=== PATIENT | male | born 1940 | race Caucasian/White ===

== ENCOUNTER 2019-02-25 08:37 | Inpatient (IN) | payer MEDICARE ==
[2019-02-25] VITALS (8 sets, daily range): BP systolic 78–104; BP diastolic 42–58
[~2019-02-25] VITALS: Ht 177.8 cm; Wt 71.2 kg
[~2019-02-25 08:37] MED LIST: AMLO5TAB16 PO; ATOR20TA66 PO; BENA10TA75 PO; CELE-193 PO; LEVO112T5 PO; METH2.5T55 PO; [UNRECOGNIZED DRUG - CODE] PO
[2019-02-25] MEDS ORDERED: ondansetron/PF 4mg/2ml inj IV ONE (08:55)
[2019-02-25] MEDS ORDERED: normal saline 1000ML IV soln IVB ONE ×2 (08:55→11:15)
[2019-02-25] MEDS ORDERED: normal saline 1000ML IV soln IV ONE (09:05)
[2019-02-25 10:39] LABS: BASOPHILS % (AUTO) 0.3 % (0-1); EOSINOPHILS % (AUTO) 0.2 % (0-6); HEMATOCRIT 40.2 % (42.0-52.0); HEMOGLOBIN 13.5 g/dl (14.0-17.9); LYMPHOCYTES # (AUTO) 0.5 X10'3 (1.1-4.8); LYMPHOCYTES % (AUTO) 4.3 % (21-51); MEAN CORPUSCULAR HEMOGLOBIN 30.2 PG (27.0-31.0); MEAN CORPUSCULAR HGB CONC 33.5 g/dL (33.0-36.5); MEAN CORPUSCULAR VOLUME 90.1 FL (78-98); MEAN PLATELET VOLUME 9.7 FL (7.4-10.4); MONOCYTES # (AUTO) 0.1 X10'3 (0-0.9); MONOCYTES % (AUTO) 1.4 % (2-12); NEUTROPHILS # (AUTO) 10.1 X10'3 (1.8-7.7); NEUTROPHILS % (AUTO) 93.8 % (42-75); PLATELET COUNT 220 X10'3 (140-440); RED BLOOD COUNT 4.46 X10'6 (4.70-6.10); WHITE BLOOD COUNT 10.8 X10'3 (4.5-11.0)
[2019-02-25 11:04] LABS: C DIFF SPECIMEN=DIARRHEA? ACCEPTABLE; C DIFFICILE TOXINS A&B NEGATIVE (Neg)
[2019-02-25 11:04] LABS: ALANINE AMINOTRANSFERASE 41 U/L (12-78); ALBUMIN 4.1 G/DL (3.4-5.0); ALKALINE PHOSPHATASE 84 IU/L (46-116); ANION GAP 18 (8-16); ASPARTATE AMINO TRANSFERASE 15 U/L (10-37); BILIRUBIN,TOTAL 0.3 MG/DL (0.1-1.0); BLOOD UREA NITROGEN 82 MG/DL (7-18); BUN/CREATININE RATIO 11.8 (5.4-32.0); CALCIUM 8.5 MG/DL (8.5-10.1); CHLORIDE 88 MMOL/L (99-107); CREATININE 6.97 MG/DL (0.60-1.10); GLUCOSE 131 MG/DL (70-104); LIPASE 575 U/L (73-393); TOTAL PROTEIN 8.1 G/DL (6.4-8.2); eGFR 8 ML/MIN
[2019-02-25 11:05] LABS: C DIFF ANTIGEN NEGATIVE (NEGATIVE)
[2019-02-25 11:08] LABS: POTASSIUM 7.6 MMOL/L (3.5-5.1); SODIUM 117 MMOL/L (135-145); TOTAL CARBON DIOXIDE 10.7 MMOL/L (24-32)
[2019-02-25] MEDS ORDERED: sodium polystyrene sulfonate 15gm/60ml oral suspension PO ONE (11:15)
[2019-02-25] MEDS ORDERED: albuterol 2.5 MG/3 ML nebule CONTNEB PRN (11:15)
[2019-02-25] MEDS ORDERED: sodium bicarbonate (8.4%) inj. 150 MEQ in dextrose 5%-water 1,000 ML IV SCH (11:55)
[2019-02-25] MEDS ORDERED: sodium bicarbonate (8.4%) 1 mEq/ml syringe IV ONE (11:55)
[2019-02-25] MEDS ORDERED: folic acid 1mg/0.2ml inj IV ONE (12:05)
[2019-02-25] MEDS ORDERED: SODIUM BICARBONATE IV ONE (12:07)
[2019-02-25] MEDS ORDERED: DEXTROSE 5% IV ONE (12:07)
[2019-02-25] MEDS ORDERED: WATER IV ONE (12:07)
[2019-02-25] MEDS ORDERED: sodium bicarbonate (8.4%) inj. 100 MEQ in dextrose 5%-water 1,000 ML IV ONE (12:07)
[2019-02-25] MEDS ORDERED: potassium CL 10mEq/100ml bag 100 ML IV PRN ×2 (12:20)
[2019-02-25] MEDS ORDERED: magnesium 4gm in 100ml NS 100 ML IV PRN (12:20)
[2019-02-25] MEDS ORDERED: potassium Cl 20 mEq SR tablet PO PRN ×2 (12:20)
[2019-02-25] MEDS ORDERED: mag hydrox/Alum hydrox/simeth 30ml oral suspension PO PRN (12:20)
[2019-02-25] MEDS ORDERED: ondansetron/PF 4mg/2ml inj IV PRN (12:20)
[2019-02-25] MEDS ORDERED: acetaminophen 325mg tablet PO PRN ×2 (12:20)
[2019-02-25] MEDS ORDERED: magnesium hydroxide 30ml (MOM) UD suspension PO PRN (12:20)
[2019-02-25] MEDS ORDERED: magnesium 2GM in 50ml NS 50 ML IV PRN (12:20)
[2019-02-25] MEDS ORDERED: AMOX-580 PO (12:40)
[2019-02-25] MEDS ORDERED: ONDA4TAB11 PO (12:40)
[2019-02-25 12:57] LABS: MAGNESIUM 1.8 MG/DL (1.5-2.4)
[2019-02-25 12:59] LABS: PHOSPHORUS 9.2 MG/DL (2.3-4.5)
[2019-02-25] MEDS ORDERED: normal saline 1000ml 1,000 ML IVB ONE ×2 (15:01→15:11)
--- NOTE | 2019-02-25 15:31 | NUR ---
Patient in room PCU 3010. I have received report from Teri the resource nurse and had the opportunity to ask questions and assume patient care. Patient hooked up to tele, Bicarb administered per MD order and vital signs obtained. BP 78/58 manually. MD notified. New orders to bolus NS X 1 liter. IVF infusing per MD. New BP 84/50 manually. Lightning Rod Installer unable to obtain labs at this time. Will hydrate and reattempt. Monitoring patient closely for any changes in condition. Patient is in Trendelenburg at this time.
--- NOTE | 2019-02-25 15:42 | NUR ---
PAGER ID: [phone] MESSAGE: [phone] Fred Tobar, IV bolus running, current BP 80/50, dry end operator unable to draw labs at this time. Nursing will attempt after IV bolus. CT scan on hold r/t condition EMILIANO Kiser RN [id number]
[2019-02-25] MEDS: piperacillin/tazo 3.375gm/50ml 50 ML IV SCH ×2 (17:14→19:51)
--- NOTE | 2019-02-25 18:30 | NUR ---
Patient in room PCU 3010. I have received report from Margi RUIZ and had the opportunity to ask questions and assume patient care.
[2019-02-25 18:34] LABS: ALBUMIN 3.2 G/DL (3.4-5.0); ANION GAP 18 (8-16); BLOOD UREA NITROGEN 71 MG/DL (7-18); BUN/CREATININE RATIO 13.1 (5.4-32.0); CALCIUM 7.4 MG/DL (8.5-10.1); CHLORIDE 100 MMOL/L (99-107); CREATININE 5.42 MG/DL (0.60-1.10); GLUCOSE 92 MG/DL (70-104); MAGNESIUM 1.8 MG/DL (1.5-2.4); POTASSIUM 4.8 MMOL/L (3.5-5.1); SODIUM 133 MMOL/L (135-145); eGFR 10 ML/MIN
--- NOTE | 2019-02-25 18:35 | NUR ---
MD at bedside, assessed patient for 2nd time. Reported to NOC RN what the POC of care is. Last checked BP was 90/25. Unable to perform to 2 RN skin check due to several issues such as colostomy bag leaking/needing colostomy bag changed, PIV being assessed by RN, charge nurse and PICC nurse as a 2nd IV is needed at this time. Phlebotomy assessing for lab draw. IV Zosyn not administered pending PIV placement, MD is aware, Noc nurse made aware. Patient is alert and in good spirits. Reported to Jaspal RN and answered all questions.
[2019-02-25 18:43] LABS: TOTAL CARBON DIOXIDE 14.8 MMOL/L (24-32)
--- NOTE | 2019-02-25 18:48 | NUR ---
NOTIFIED PAGER ID: [phone] MESSAGE: Fred Tobar, 0080- critical value, CO2 14.8, other new labs Na 133, K 4.8, Cr 5.42. Jaspal RUIZ Addendum: 02/25/19 at 1852 by Issac Noland RN per goals is to continue NS bolus prn to SBP goal of 100-110, has given order for a total of 4L NS to be given PRN for SBP 2nd liter is currently running
[2019-02-25] MEDS: K and/or MAG REPLACEMENT MC SCH (20:00)
[2019-02-25] MEDS ORDERED: normal saline 1000ml 1,000 ML IV PRN (20:05)
[2019-02-25] MEDS: atorvastatin 20mg tablet PO SCH (20:53)
[2019-02-25] MEDS: heparin, porcine 5000 units/ml vial SQ SCH (20:54)
[2019-02-25 22:52] LABS: CLARITY,URINE CLEAR (Clear); COLOR,URINE YELLOW (Yellow); GLUCOSE, URINE NEGATIVE (Neg); KETONES,URINE NEGATIVE (Neg); LEUKOCYTE ESTERASE ,URINE NEGATIVE (Neg); NITRITES, URINE NEGATIVE (Neg); OCCULT BLOOD,URINE TRACE-INTACT (Neg); PROTEIN,URINE NEGATIVE (Neg); UROBILINOGEN,URINE 0.2 E.U/dL (0.2-1.0)
[2019-02-25 22:56] LABS: UA COLLECTION TYPE URINAL
[2019-02-25 23:00] LABS: AMORPHOUS URATES 1+; BACTERIA,URINE NONE SEEN /HPF (Neg); MUCUS STRANDS NONE SEEN /LPF (Neg); RBC,URINE 0-2 /HPF (0-2); SQUAMOUS EPITHELIAL CELL,UR NONE SEEN /LPF (FEW); WBC,URINE NONE SEEN /HPF (0-4)
[2019-02-26] MEDS: piperacillin/tazo 3.375gm/50ml 50 ML IV SCH ×4 (01:17→23:01)
[2019-02-26 05:01] LABS: BASOPHILS % (AUTO) 0.4 % (0-1); EOSINOPHILS % (AUTO) 0.2 % (0-6); HEMATOCRIT 28.6 % (42.0-52.0); HEMOGLOBIN 9.7 g/dl (14.0-17.9); LYMPHOCYTES # (AUTO) 0.5 X10'3 (1.1-4.8); LYMPHOCYTES % (AUTO) 13.4 % (21-51); MEAN CORPUSCULAR HGB CONC 33.8 g/dL (33.0-36.5); MEAN CORPUSCULAR VOLUME 88.8 FL (78-98); MEAN PLATELET VOLUME 9.4 FL (7.4-10.4); MONOCYTES # (AUTO) 0.1 X10'3 (0-0.9); MONOCYTES % (AUTO) 2.8 % (2-12); NEUTROPHILS % (AUTO) 83.2 % (42-75); PLATELET COUNT 151 X10'3 (140-440); RED BLOOD COUNT 3.22 X10'6 (4.70-6.10); RED CELL DISTRIBUTION WIDTH 15.8 % (11.5-14.5); WHITE BLOOD COUNT 3.6 X10'3 (4.5-11.0)
[2019-02-26 05:14] LABS: ANION GAP 14 (8-16); BLOOD UREA NITROGEN 59 MG/DL (7-18); BUN/CREATININE RATIO 15.7 (5.4-32.0); CALCIUM 7.2 MG/DL (8.5-10.1); CHLORIDE 102 MMOL/L (99-107); CREATININE 3.76 MG/DL (0.60-1.10); GLUCOSE 103 MG/DL (70-104); MAGNESIUM 1.6 MG/DL (1.5-2.4); POTASSIUM 4.3 MMOL/L (3.5-5.1); SODIUM 134 MMOL/L (135-145); TOTAL CARBON DIOXIDE 17.6 MMOL/L (24-32); eGFR 16 ML/MIN
[2019-02-26 06:00] VITALS: BP 101/52
--- NOTE | 2019-02-26 06:37 | NUR ---
Problems reprioritized. Patient report given, questions answered & plan of care reviewed with KATHRYN RN.
--- NOTE | 2019-02-26 06:39 | NUR ---
Patient in room PCU 3010. I have received report from JOSEPH JAEGER and had the opportunity to ask questions and assume patient care.
[2019-02-26] MEDS: folic acid 0.4mg tablet PO SCH (07:55)
[2019-02-26] MEDS: heparin, porcine 5000 units/ml vial SQ SCH ×2 (07:59→20:20)
[2019-02-26] MEDS: levoTHYROXINE 112mcg tablet PO SCH (07:59)
[2019-02-26] MEDS: K and/or MAG REPLACEMENT MC SCH ×2 (08:00→20:00)
[2019-02-26] MEDS: sodium bicarbonate (8.4%) inj. 75 MEQ in dextrose 5%-water 500 ML IV SCH ×4 (10:21→22:58)
[2019-02-26 11:00] VITALS: BP 110/51
--- NOTE | 2019-02-26 14:08 | NUR ---
Malnutrition consult: Pt admit w/ N/V/weakness second admit in 2 weeks w/ similar symptoms per MD note. 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 Per mechanical piping designer; hyponatremia, hyperkalemic, hypochloremic acidosis w/ prerenal azotemia in addition to sodium bicarb deficit from ileostomy. Pt has abdominal pain pending CT but likely from mesenteric ischemia r/t volume contraction per MD note. Pt PO 100% first renal diet, current wt 64kg chair scale compared to 65.7kg bed scale wt 2 weeks ago likely no significant wt loss hx. Pt also has no significant edema or weakness, skin intact, and does not meet minimum malnutrition criteria at this time. OSMAR d/w RN regarding low-fiber diet addition per MD approval given Ileostomy. 600ml output today. Will monitor for additional malnutrition criteria this admit. Rec: 1. low-fiber/renal diet per MD given hx ileostomy Addendum: 02/26/19 at [address] Amended: Links added.
[2019-02-26 15:00] VITALS: BP 106/45
[2019-02-26 18:00] VITALS: BP 117/51
--- NOTE | 2019-02-26 18:35 | NUR ---
Problems reprioritized. Patient report given, questions answered & plan of care reviewed with JOSEPH VILLALOBOS.
--- NOTE | 2019-02-26 19:01 | NUR ---
Patient in room PCU 3010. I have received report from Brandon RUIZ and had the opportunity to ask questions and assume patient care.
--- NOTE | 2019-02-26 19:01 | NUR ---
Problems reprioritized. Patient report given, questions answered & plan of care reviewed with Ines RUIZ.
[2019-02-26] MEDS: atorvastatin 20mg tablet PO SCH (20:20)
[2019-02-26 22:00] VITALS: BP 118/65
[2019-02-27 02:00] VITALS: BP 92/53
[2019-02-27] MEDS: sodium bicarbonate (8.4%) inj. 75 MEQ in dextrose 5%-water 500 ML IV SCH ×3 (04:04→22:22)
[2019-02-27 05:47] LABS: ALBUMIN 2.9 G/DL (3.4-5.0); ANION GAP 10 (8-16); BLOOD UREA NITROGEN 43 MG/DL (7-18); BUN/CREATININE RATIO 18.2 (5.4-32.0); CHLORIDE 100 MMOL/L (99-107); CREATININE 2.36 MG/DL (0.60-1.10); GLUCOSE 131 MG/DL (70-104); MAGNESIUM 1.2 MG/DL (1.5-2.4); POTASSIUM 3.7 MMOL/L (3.5-5.1); SODIUM 135 MMOL/L (135-145); TOTAL CARBON DIOXIDE 24.6 MMOL/L (24-32); eGFR 27 ML/MIN
[2019-02-27 05:51] LABS: BASOPHILS % (AUTO) 0.8 % (0-1); EOSINOPHILS % (AUTO) 0.5 % (0-6); HEMATOCRIT 27.9 % (42.0-52.0); HEMOGLOBIN 9.8 g/dl (14.0-17.9); LYMPHOCYTES # (AUTO) 0.6 X10'3 (1.1-4.8); LYMPHOCYTES % (AUTO) 16.9 % (21-51); MEAN CORPUSCULAR HEMOGLOBIN 30.8 PG (27.0-31.0); MEAN CORPUSCULAR VOLUME 88.2 FL (78-98); MEAN PLATELET VOLUME 9.4 FL (7.4-10.4); MONOCYTES # (AUTO) 0.1 X10'3 (0-0.9); MONOCYTES % (AUTO) 1.8 % (2-12); PLATELET COUNT 145 X10'3 (140-440); RED BLOOD COUNT 3.17 X10'6 (4.70-6.10); RED CELL DISTRIBUTION WIDTH 15.8 % (11.5-14.5); WHITE BLOOD COUNT 3.7 X10'3 (4.5-11.0)
[2019-02-27 06:00] VITALS: BP 92/48
--- NOTE | 2019-02-27 06:11 | NUR ---
V Tach on monitor: Pt. is feeling asymptomatic with No chest discomfort, responds appropriately to questions and denies any lightheadedness or feeling any palpitation. 8-9 beat run of PVC's and completely resolving. Normal Sinus Rhythm 75.
--- NOTE | 2019-02-27 06:30 | NUR ---
Problems reprioritized. Patient report given to Andreina, questions answered & plan of care reviewed with .
[2019-02-27] MEDS: K and/or MAG REPLACEMENT MC SCH ×2 (07:04→20:00)
--- NOTE | 2019-02-27 07:29 | NUR ---
Page: Melisa HOLDER V Tach on monitor: Pt. is feeling asymptomatic with No chest discomfort, responds appropriately to questions and denies any lightheadedness or feeling any palpitation. 8-9 beat run of PVC's and completely resolving. Normal Sinus Rhythm 75.
[2019-02-27] MEDS: piperacillin/tazo 3.375gm/50ml 50 ML IV SCH ×2 (08:36→16:23)
[2019-02-27] MEDS: heparin, porcine 5000 units/ml vial SQ SCH ×2 (08:37→20:19)
[2019-02-27] MEDS: levoTHYROXINE 112mcg tablet PO SCH (08:37)
[2019-02-27] MEDS: folic acid 0.4mg tablet PO SCH (08:37)
[2019-02-27 11:00] VITALS: BP 111/56
[2019-02-27 14:00] VITALS: BP 146/41
[2019-02-27] MEDS: loperamide 2mg capsule PO SCH ×2 (16:24→20:19)
--- NOTE | 2019-02-27 17:45 | NUR ---
Notified of 8-beat run of VTach. PAGER ID: [phone] MESSAGE: [phone] Antonio Tobar 8-beat run [facility]ach [facility] ST[facility]LY[facility] Santana or Maxine [phone]
--- NOTE | 2019-02-27 17:54 | NUR ---
Glenys HOLDER notified of 8 beat run of Ventricular Rhythm. will cont. to monitor.
--- NOTE | 2019-02-27 18:15 | NUR ---
Patient in room PCU 3010. I have received report from Maxine RUIZ and had the opportunity to ask questions and assume patient care. Patient is resting with family at bedside.
[2019-02-27 19:00] VITALS: BP 140/86
[2019-02-27] MEDS: atorvastatin 20mg tablet PO SCH (20:19)
[2019-02-27 23:00] VITALS: BP 115/51
[2019-02-28] MEDS: piperacillin/tazo 3.375gm/50ml 50 ML IV SCH ×2 (00:56→08:00)
[2019-02-28] MEDS: loperamide 2mg capsule PO SCH ×2 (01:00→08:00)
[2019-02-28 03:00] VITALS: BP 109/49
[2019-02-28 05:31] LABS: ALBUMIN 2.7 G/DL (3.4-5.0); ANION GAP 7 (8-16); BLOOD UREA NITROGEN 23 MG/DL (7-18); BUN/CREATININE RATIO 14.4 (5.4-32.0); CALCIUM 6.4 MG/DL (8.5-10.1); CHLORIDE 99 MMOL/L (99-107); GLUCOSE 111 MG/DL (70-104); POTASSIUM 3.5 MMOL/L (3.5-5.1); SODIUM 137 MMOL/L (135-145); TOTAL CARBON DIOXIDE 30.6 MMOL/L (24-32); eGFR 42 ML/MIN
[2019-02-28 05:33] LABS: BASOPHILS % (AUTO) 0.4 % (0-1); EOSINOPHILS % (AUTO) 0.8 % (0-6); HEMATOCRIT 26.6 % (42.0-52.0); HEMOGLOBIN 9.2 g/dl (14.0-17.9); LYMPHOCYTES # (AUTO) 0.6 X10'3 (1.1-4.8); LYMPHOCYTES % (AUTO) 21.5 % (21-51); MEAN CORPUSCULAR HEMOGLOBIN 30.6 PG (27.0-31.0); MEAN CORPUSCULAR HGB CONC 34.5 g/dL (33.0-36.5); MEAN CORPUSCULAR VOLUME 88.8 FL (78-98); MEAN PLATELET VOLUME 9.5 FL (7.4-10.4); MONOCYTES # (AUTO) 0.1 X10'3 (0-0.9); MONOCYTES % (AUTO) 2.5 % (2-12); NEUTROPHILS # (AUTO) 2.1 X10'3 (1.8-7.7); NEUTROPHILS % (AUTO) 74.8 % (42-75); PLATELET COUNT 128 X10'3 (140-440); RED BLOOD COUNT 2.99 X10'6 (4.70-6.10); RED CELL DISTRIBUTION WIDTH 15.7 % (11.5-14.5); WHITE BLOOD COUNT 2.8 X10'3 (4.5-11.0)
[2019-02-28 05:45] LABS: MAGNESIUM 0.8 MG/DL (1.5-2.4)
[2019-02-28] MEDS: sodium bicarbonate (8.4%) inj. 75 MEQ in dextrose 5%-water 500 ML IV SCH ×2 (05:51→08:17)
[2019-02-28] MEDS: magnesium Cl slow-release 64mg tablet PO PRN ×2 (05:52→10:09)
[2019-02-28 06:00] VITALS: BP 121/71
--- NOTE | 2019-02-28 06:04 | NUR ---
Problems reprioritized. Patient report given, questions answered & plan of care reviewed with Maxine RUIZ.
--- NOTE | 2019-02-28 06:05 | NUR ---
Lab called with critical Mg 0.8, 2 tabs of slow mg given
--- NOTE | 2019-02-28 07:19 | NUR ---
Daughter called and stated that: 02/26 PGE shut off the patients front heater in his house b/c they found it was emitting too much carbon monoxide. Daughter would like this info relayed to primary RN and . Will inform JOSEPH Goodman.
[2019-02-28] MEDS: K and/or MAG REPLACEMENT MC SCH (08:00)
[2019-02-28 08:11] LABS: TOTAL CELLS COUNTED 100
[2019-02-28 08:16] LABS: PLATELET ESTIMATE DECREASED
[2019-02-28] MEDS: folic acid 0.4mg tablet PO SCH (08:18)
[2019-02-28] MEDS: levoTHYROXINE 112mcg tablet PO SCH (08:18)
[2019-02-28] MEDS: heparin, porcine 5000 units/ml vial SQ SCH (08:20)
[2019-02-28 10:57] VITALS: BP 109/49
[2019-02-28 11:00] VITALS: BP 126/60
--- NOTE | 2019-02-28 11:55 | NUR ---
Pt. Daughter says His home heater has Carbon Monoxide Leak. Addendum: 02/28/19 at 1158 by Maxine Gusman RN Error Wrong Pt. Addendum: 02/28/19 at 1200 by Maxine Gusman RN Note is correct. Carbon Monoxide is detected at Renetta's home.
--- NOTE | 2019-02-28 13:54 | NUR ---
Page Critical Lab: PAGER ID: [phone] MESSAGE: [phone] Critical Low: Mg++ of 0.9 3010 Fred Tobar provider will Discharge Home today to care of Dr. Tubbs.
[2019-02-28] MEDS ORDERED: MAGN500C16 PO (13:57)
== END 2019-02-28 15:15 | disposition home health service (06) | DRG 871 ==
LOC: ER 08:38 → ED HOLD 12:30 → PCU 3S 13:20
PROVIDERS: ADMIT Hospitalist; ATTEND Internal Medicine
DX: A41.9 Sepsis, unspecified organism (principal); R57.1 Hypovolemic shock; E87.1 Hypo-osmolality and hyponatremia; K50.90 Crohn's disease, unspecified, without complications; N17.9 Acute kidney failure, unspecified; E87.5 Hyperkalemia; E87.8 Other disorders of electrolyte and fluid balance, not elsewhere classified; E03.9 Hypothyroidism, unspecified; E78.5 Hyperlipidemia, unspecified; F17.210 Nicotine dependence, cigarettes, uncomplicated; I10 Essential (primary) hypertension; Z93.2 Ileostomy status; Z93.3 Colostomy status; Z90.49 Acquired absence of other specified parts of digestive tract; B99.8 Other infectious disease
CPT/HCPCS: 36415; 71045; 74176; 76937; 80048; 80053; 81001; 83605; 83690; 83735; 84100; 84145; 84443; 84484; 85025; 87040; 87045; 87046; 87081; 87324; 87449; 87502; 87503; 93005; 94640; 94760; 96361; 96374; 99285; G0378; J1644; J2405; J2543; J3490; J7030

== ENCOUNTER → 2019-08-09 | Emergency (ER) | payer MEDICARE ==
[~2019-08-09] VITALS: Ht 172.7 cm; Wt 65.6 kg
[~2019-08-09] MED LIST changes: -CELE-193 PO; +MAGN500C16 PO; -METH2.5T55 PO; +ONDA-103 PO; +normal saline 1000ML IV soln IVB ONE
[2019-08-09 09:54] LABS: HEMOGLOBIN 12.4 g/dl (14.0-17.9); LYMPHOCYTES # (AUTO) 1.3 X10'3 (1.1-4.8); MEAN CORPUSCULAR HGB CONC 33.1 g/dL (33.0-36.5); MONOCYTES # (AUTO) 0.6 X10'3 (0-0.9); NEUTROPHILS # (AUTO) 3.5 X10'3 (1.8-7.7); RED CELL DISTRIBUTION WIDTH 15.1 % (11.5-14.5)
[2019-08-09 09:56] LABS: BASOPHILS % (AUTO) 0.4 % (0-1); EOSINOPHILS % (AUTO) 0.4 % (0-6); HEMATOCRIT 37.5 % (42.0-52.0); LYMPHOCYTES % (AUTO) 24.5 % (21-51); MEAN CORPUSCULAR HEMOGLOBIN 28.4 PG (27.0-31.0); MEAN PLATELET VOLUME 9.6 FL (7.4-10.4); MONOCYTES % (AUTO) 10.6 % (2-12); NEUTROPHILS % (AUTO) 64.1 % (42-75); PLATELET COUNT 148 X10'3 (140-440); RED BLOOD COUNT 4.36 X10'6 (4.70-6.10); WHITE BLOOD COUNT 5.4 X10'3 (4.5-11.0)
[2019-08-09 10:09] LABS: ALANINE AMINOTRANSFERASE 22 U/L (12-78); ALBUMIN 4.1 G/DL (3.4-5.0); ALBUMIN/GLOBULIN RATIO 1.2 (1.1-1.5); ALKALINE PHOSPHATASE 78 IU/L (46-116); ANION GAP 10 (8-16); ASPARTATE AMINO TRANSFERASE 12 U/L (10-37); BILIRUBIN,TOTAL 0.3 MG/DL (0.1-1.0); BLOOD UREA NITROGEN 47 MG/DL (7-18); BUN/CREATININE RATIO 27.3 (5.4-32.0); CALCIUM 8.6 MG/DL (8.5-10.1); CHLORIDE 107 MMOL/L (99-107); CREATININE 1.72 MG/DL (0.60-1.10); GLUCOSE 106 MG/DL (70-104); POTASSIUM 5.7 MMOL/L (3.5-5.1); SODIUM 132 MMOL/L (135-145); TOTAL CARBON DIOXIDE 15.4 MMOL/L (24-32); TOTAL PROTEIN 7.5 G/DL (6.4-8.2); eGFR 39 ML/MIN
[2019-08-09 10:15] LABS: CLARITY,URINE CLEAR (Clear); COLOR,URINE STRAW (Yellow); GLUCOSE, URINE NEGATIVE (Neg); KETONES,URINE NEGATIVE (Neg); LEUKOCYTE ESTERASE ,URINE NEGATIVE (Neg); NITRITES, URINE NEGATIVE (Neg); OCCULT BLOOD,URINE NEGATIVE (Neg); PH,URINE 5.5 (4.8-8.0); PROTEIN,URINE NEGATIVE (Neg); UROBILINOGEN,URINE 0.2 E.U/dL (0.2-1.0)
[2019-08-09 10:20] LABS: UA COLLECTION TYPE VOIDED
[2019-08-09 10:53] VITALS: BP 118/51
== END | disposition home or self-care (01) ==
LOC: ER 08:59
DX: I12.9 Hypertensive chronic kidney disease with stage 1 through stage 4 chronic kidney disease, or unspecified chronic kidney disease (principal); N18.9 Chronic kidney disease, unspecified; E87.5 Hyperkalemia; E86.0 Dehydration; Z98.890 Other specified postprocedural states; Z79.899 Other long term (current) drug therapy
CPT/HCPCS: 36415; 80053; 81003; 85025; 96360; 99284; J7030

== ENCOUNTER 2020-09-02 14:28 | Emergency (ER) | payer MEDICARE ==
[~2020-09-02] VITALS: Ht 175.3 cm; Wt 63.8 kg
[~2020-09-02 14:28] MED LIST changes: -normal saline 1000ML IV soln IVB ONE
[2020-09-02 16:02] LABS: EOSINOPHILS % (AUTO) 0.4 % (0-6); HEMATOCRIT 39.2 % (42.0-52.0); HEMOGLOBIN 13.3 g/dl (14.0-17.9); LYMPHOCYTES # (AUTO) 1.5 X10'3 (1.1-4.8); MEAN CORPUSCULAR HGB CONC 33.9 g/dL (33.0-36.5); MONOCYTES # (AUTO) 0.9 X10'3 (0-0.9); NEUTROPHILS # (AUTO) 4.2 X10'3 (1.8-7.7); NEUTROPHILS % (AUTO) 62.4 % (42-75); RED CELL DISTRIBUTION WIDTH 14.8 % (11.5-14.5); WHITE BLOOD COUNT 6.7 X10'3 (4.5-11.0)
[2020-09-02 16:04] LABS: BASOPHILS # (AUTO) 0.1 X10'3 (0-0.2); LYMPHOCYTES % (AUTO) 23.2 % (21-51); MEAN CORPUSCULAR VOLUME 88.6 FL (78-98); MEAN PLATELET VOLUME 9.9 FL (7.4-10.4); PLATELET COUNT 87 X10'3 (140-440); RED BLOOD COUNT 4.42 X10'6 (4.70-6.10)
[2020-09-02 16:15] LABS: CLARITY,URINE CLEAR (Clear); COLOR,URINE YELLOW (Yellow); GLUCOSE, URINE NEGATIVE (Neg); KETONES,URINE NEGATIVE (Neg); LEUKOCYTE ESTERASE ,URINE TRACE (Neg); NITRITES, URINE NEGATIVE (Neg); OCCULT BLOOD,URINE NEGATIVE (Neg); PH,URINE 5.5 (4.8-8.0); PROTEIN,URINE NEGATIVE (Neg); UROBILINOGEN,URINE 0.2 E.U/dL (0.2-1.0)
[2020-09-02 16:17] LABS: ALANINE AMINOTRANSFERASE 28 U/L (12-78); ALBUMIN 4.5 G/DL (3.4-5.0); ALBUMIN/GLOBULIN RATIO 1.3 (1.1-1.5); ALKALINE PHOSPHATASE 79 IU/L (46-116); ASPARTATE AMINO TRANSFERASE 14 U/L (10-37); BILIRUBIN,TOTAL 0.3 MG/DL (0.1-1.0); BLOOD UREA NITROGEN 48 MG/DL (7-18); BUN/CREATININE RATIO 23.5 (5.4-32.0); CHLORIDE 101 MMOL/L (99-107); CREATININE 2.04 MG/DL (0.60-1.10); GLUCOSE 97 MG/DL (70-104); SODIUM 129 MMOL/L (135-145); TOTAL PROTEIN 8.1 G/DL (6.4-8.2); eGFR 32 ML/MIN
[2020-09-02 16:19] LABS: ANION GAP 14 (8-16)
[2020-09-02 16:52] LABS: BACTERIA,URINE FEW /HPF (Neg); HYALINE CASTS 0-3 /LPF (NEGATIVE); RBC,URINE NONE SEEN /HPF (0-2); SQUAMOUS EPITHELIAL CELL,UR FEW /LPF (FEW); UA COLLECTION TYPE CLN CATCH MIDSTREAM; WBC,URINE 0-4 /HPF (0-4)
[2020-09-02 19:35] LABS: TOTAL CELLS COUNTED 100
[2020-09-02 19:38] LABS: ANISOCYTOSIS FEW; LARGE PLATELETS FEW; PLATELET ESTIMATE DECREASED
[2020-09-02 19:39] LABS: SMUDGE CELLS 1+
[2020-09-02] MEDS ORDERED: normal saline 1000ML IV soln IVB ONE (20:20)
--- NOTE | 2020-09-02 21:28 | NUR ---
PT SWIFE REMAINS AT BEDSIDE. PT IS POLITE AND COOPERATIVE. VSS. DENIES ANY PAIN. JUST FINISHED THE 2 LITERS NS. AWAITING DISPOSITION.
[2020-09-02 22:21] VITALS: BP 108/67
== END 2020-09-02 22:08 | disposition home or self-care (01) ==
LOC: ER 14:29
DX: E86.0 Dehydration (principal); I10 Essential (primary) hypertension; Z98.890 Other specified postprocedural states; Z72.89 Other problems related to lifestyle; Z79.899 Other long term (current) drug therapy
CPT/HCPCS: 36415; 80053; 81001; 83605; 83735; 85007; 85025; 87088; 96360; 99284; J7030; 99283

== ENCOUNTER 2021-12-22 05:56 | Day surgery (SDC) | payer MEDICARE ==
[2021-12-21 14:37] LABS: BASOPHILS % (AUTO) 0.6 % (0-1); EOSINOPHILS % (AUTO) 0.4 % (0-6); HEMATOCRIT 43.2 % (42.0-52.0); HEMOGLOBIN 14.5 g/dl (14.0-17.9); LYMPHOCYTES # (AUTO) 0.9 X10'3 (1.1-4.8); LYMPHOCYTES % (AUTO) 25.7 % (21-51); MEAN CORPUSCULAR HEMOGLOBIN 29.3 PG (27.0-31.0); MEAN CORPUSCULAR HGB CONC 33.7 g/dL (33.0-36.5); MEAN CORPUSCULAR VOLUME 86.9 FL (78-98); MEAN PLATELET VOLUME 10.1 FL (7.4-10.4); MONOCYTES # (AUTO) 0.7 X10'3 (0-0.9); MONOCYTES % (AUTO) 21.2 % (2-12); NEUTROPHILS # (AUTO) 1.8 X10'3 (1.8-7.7); NEUTROPHILS % (AUTO) 52.1 % (42-75); PLATELET COUNT 54 X10'3 (140-440); RED BLOOD COUNT 4.97 X10'6 (4.70-6.10); RED CELL DISTRIBUTION WIDTH 15.6 % (11.5-14.5); WHITE BLOOD COUNT 3.5 X10'3 (4.5-11.0)
[2021-12-21 14:47] LABS: ALBUMIN 4.4 G/DL (3.4-5.0); ANION GAP 11 (8-16); BLOOD UREA NITROGEN 15 MG/DL (7-18); BUN/CREATININE RATIO 12.4 (5.4-32.0); CALCIUM 9.8 MG/DL (8.5-10.1); CHLORIDE 101 MMOL/L (99-107); CREATININE 1.21 MG/DL (0.60-1.10); GLUCOSE 136 MG/DL (70-104); POTASSIUM 3.6 MMOL/L (3.5-5.1); SODIUM 138 MMOL/L (135-145); TOTAL CARBON DIOXIDE 25.8 MMOL/L (24-32); eGFR 58 ML/MIN
[2021-12-21 14:51] LABS: APTT 28 SECONDS (22-32)
[2021-12-21 14:52] LABS: TOTAL CELLS COUNTED 100
[2021-12-21 14:53] LABS: LARGE PLATELETS FEW; PLATELET ESTIMATE DECREASED
[2021-12-22] VITALS (11 sets, daily range): BP systolic 137–159; BP diastolic 65–87
[~2021-12-22] VITALS: Ht 172.7 cm; Wt 67.0 kg
[~2021-12-22 05:56] MED LIST changes: -BENA10TA75 PO; +CALC1TAB PO; -LEVO112T5 PO; +LEVO137T2 PO; +LOPE-144 PO; -MAGN500C16 PO; -ONDA-103 PO; -[UNRECOGNIZED DRUG - CODE] PO
[2021-12-22] MEDS ORDERED: LORazepam 0.5 MG tablet PO PRN (06:15)
[2021-12-22] MEDS ORDERED: diphenhydrAMINE 25mg capsule PO PRN (06:15)
[2021-12-22] MEDS ORDERED: normal saline 1,000 ML IV SCH (06:15)
[2021-12-22] MEDS ORDERED: sodium bicarbonate (8.4%) inj. 150 ML in dextrose 5%-water 1,000 ML IV ONE (06:15)
[2021-12-22] MEDS ORDERED: LOPE2CAP PO (06:39)
[2021-12-22] MEDS ORDERED: MULT-1085 PO (06:39)
[2021-12-22] MEDS: acetylcysteine 200 MG/ml 4ml vial PO PRN ×3 (07:17→14:55)
[2021-12-22] MEDS ORDERED: midazolam 1 mg/ML 2ml injection ONE (07:26)
[2021-12-22] MEDS ORDERED: verapamil 2.5 mg/ml inj IV ONE (07:26)
[2021-12-22] MEDS ORDERED: fentaNYL/PF 50MCG/1 ML 2ML syringe ONE (07:26)
[2021-12-22] MEDS ORDERED: nitroGLYCERIN-Tridil 50MG/D5W 250 ML IV ONE (07:26)
[2021-12-22] MEDS ORDERED: heparin 1,000unit/ml 10ml vial 10 ML ONE (07:27)
[2021-12-22] MEDS ORDERED: LIDOcaine 1% (10mg/ml) 2ml vial ONE (07:27)
[2021-12-22] MEDS ORDERED: iohexol 300mg/ml 100ml inj. ONE ×2 (07:31→08:47)
[2021-12-22] MEDS ORDERED: LIDOcaine 1% 30ml preserv. free vial ONE (08:11)
[2021-12-22 11:34] LABS: ISTAT Hct MIX 35 %PCV (42-52); ISTAT O2 SATURATION MIX VENOUS 73 % (60-80); ISTAT SOURCE VEN
--- NOTE | 2021-12-22 14:10 | NUR ---
void 500 ml, clear yellow
[2021-12-27 06:23] LABS: ISTAT HGB ART 13.3 g/dl (14.0-17.9); ISTAT Hct ART 39 %PCV (42-52); ISTAT O2 SATURATION ARTERIAL 96 % (95-98); ISTAT SOURCE ART
== END 2021-12-22 15:00 | disposition home or self-care (01) ==
LOC: SSTAY O 05:56
PROVIDERS: ATTEND Internal Medicine Cardiovascular Disease
DX: I25.10 Atherosclerotic heart disease of native coronary artery without angina pectoris (principal); I35.0 Nonrheumatic aortic (valve) stenosis; I10 Essential (primary) hypertension; E78.5 Hyperlipidemia, unspecified; E03.9 Hypothyroidism, unspecified; I34.0 Nonrheumatic mitral (valve) insufficiency; I48.0 Paroxysmal atrial fibrillation; Z79.01 Long term (current) use of anticoagulants; Z79.899 Other long term (current) drug therapy; M19.90 Unspecified osteoarthritis, unspecified site; Z82.49 Family history of ischemic heart disease and other diseases of the circulatory system; Z98.890 Other specified postprocedural states
CPT/HCPCS: 36415; 76937; 80048; 82803; 85014; 85025; 85610; 85730; 93005; 93460; 99152; 99153; C1751; C1769; C1894; J1644; J2250; J3010; J3490; J7030; J7070; Q0163; Q9967; 85007; A4620; A5120; A6258; A6402

== ENCOUNTER 2022-07-18 13:37 | Outpatient (CLI) | payer MEDICARE ==
[~2022-07-18 13:37] MED LIST changes: -LOPE-144 PO; +LOPE2CAP PO; +MULT-1085 PO
== END 2022-07-18 23:59 | disposition home or self-care (01) ==
LOC: CARD DIAG 13:37
PROVIDERS: ATTEND Internal Medicine Cardiovascular Disease
DX: I08.8 Other rheumatic multiple valve diseases (principal)
CPT/HCPCS: 93306

== ENCOUNTER 2023-10-03 06:01 | Day surgery (SDC) | payer MEDICARE ==
[2023-10-02 14:47] LABS: EOSINOPHILS # (AUTO) 0.1 X10'3 (0-0.9); EOSINOPHILS % (AUTO) 1.8 % (0-6); LYMPHOCYTES # (AUTO) 1.1 X10'3 (1.1-4.8); MONOCYTES # (AUTO) 0.9 X10'3 (0-0.9); PLATELET COUNT 60 X10'3 (140-440); WHITE BLOOD COUNT 4.1 X10'3 (4.5-11.0)
[2023-10-02 14:48] LABS: APTT 26 SECONDS (22-32); INR 1.1 INR
[2023-10-02 14:49] LABS: BASOPHILS % (AUTO) 0.9 % (0-1); HEMATOCRIT 45.1 % (42.0-52.0); HEMOGLOBIN 14.9 g/dl (14.0-17.9); MEAN CORPUSCULAR HEMOGLOBIN 28.9 PG (27.0-31.0); MEAN CORPUSCULAR HGB CONC 32.9 g/dL (33.0-36.5); MEAN CORPUSCULAR VOLUME 87.8 FL (78-98); MEAN PLATELET VOLUME 10.9 FL (7.4-10.4); MONOCYTES % (AUTO) 22.4 % (2-12); NEUTROPHILS # (AUTO) 1.9 X10'3 (1.8-7.7); NEUTROPHILS % (AUTO) 46.9 % (42-75); RED BLOOD COUNT 5.14 X10'6 (4.70-6.10); RED CELL DISTRIBUTION WIDTH 17.7 % (11.5-14.5)
[2023-10-02 14:59] LABS: ALBUMIN 4.3 G/DL (3.4-5.0); ANION GAP 6 (8-16); BLOOD UREA NITROGEN 18 MG/DL (7-18); BUN/CREATININE RATIO 13.4 (10.0-20.0); CALCIUM 9.7 MG/DL (8.5-10.1); CHLORIDE 103 MMOL/L (99-107); CREATININE 1.34 MG/DL (0.60-1.10); GLUCOSE 93 MG/DL (70-104); POTASSIUM 4.2 MMOL/L (3.5-5.1); SODIUM 135 MMOL/L (135-145); TOTAL CARBON DIOXIDE 26.4 MMOL/L (24-32); eGFR 51 ML/MIN
[2023-10-02 15:11] LABS: ANISOCYTOSIS 1+; LARGE PLATELETS FEW; PLATELET ESTIMATE DECREASED
[~2023-10-03] VITALS: Ht 170.2 cm; Wt 66.0 kg
[2023-10-03] VITALS (23 sets, daily range): BP systolic 120–152; BP diastolic 51–96; PULSE 72–129; RESP 11–24; TEMP 98.3; O2SAT 95–99
[2023-10-03] MEDS ORDERED: ASPI-611 PO (06:52)
[2023-10-03] MEDS ORDERED: METO-395 PO (06:52)
[2023-10-03] MEDS ORDERED: LIDOcaine 1% (10mg/ml) 2ml vial ONE (07:25)
[2023-10-03] MEDS ORDERED: heparin 1,000unit/ml 10ml vial 10 ML ONE ×2 (07:26→08:57)
[2023-10-03] MEDS ORDERED: iohexol 350MG/ML 100ml bottle IV ONE ×2 (07:26→09:08)
[2023-10-03] MEDS ORDERED: iohexol 350 MG/ML 50ML vial IV ONE (07:26)
[2023-10-03] MEDS ORDERED: fentaNYL/PF 50MCG/1 ML 2ML syringe ONE (07:26)
[2023-10-03] MEDS ORDERED: verapamil 2.5 mg/ml inj IV ONE (07:26)
[2023-10-03] MEDS ORDERED: midazolam 1 mg/ML 2ml injection ONE (07:26)
[2023-10-03] MEDS ORDERED: nitroGLYCERIN 500mcg/5mL D5W 5 ML IV ONE (07:26)
[2023-10-03] MEDS: diphenhydrAMINE 25mg capsule PO PRN (07:36)
[2023-10-03] MEDS: LORazepam 0.5 MG tablet PO PRN (07:37)
[2023-10-03] MEDS: normal saline 1,000 ML IV SCH (07:37)
[2023-10-03] MEDS: acetylcysteine 200 MG/ml 4ml vial PO SCH (07:37)
[2023-10-03] MEDS: sodium bicarbonate 1meq/ml inj 150 ML in dextrose 5%-water 1,000 ML IV SCH (07:37)
[2023-10-03] MEDS ORDERED: heparin 25,000 UNIT/250ml bag 250 ML IV ONE (09:08)
[2023-10-03] MEDS ORDERED: heparin 1,000 UNITS/NS 500ml 500 ML ONE (09:34)
[2023-10-03] MEDS ORDERED: clopidogrel 300mg tablet ONE (09:43)
[2023-10-03] MEDS ORDERED: aspirin 325mg tablet ONE (09:46)
[2023-10-03] MEDS ORDERED: DOBUTamine-DoBUTrex 500mg/D5W 250 ML IV ONE ×2 (10:40→10:46)
[2023-10-03] MEDS ORDERED: metoprolol tartrate 1mg/ml inj IV PRN ×2 (10:40)
[2023-10-03] MEDS ORDERED: nitroGLYCERIN 0.4mg SUBLingual tab SL PRN ×2 (10:40)
[2023-10-03] MEDS ORDERED: atropine 0.1mg/ml 10ml syringe IV PRN ×2 (10:40)
[2023-10-03] MEDS ORDERED: DOBUTamine-DoBUTrex 500mg/D5W 250 ML IV SCH (10:40)
[2023-10-03] MEDS ORDERED: normal saline 500ml IV soln 500 ML IV SCH ×2 (10:40)
[2023-10-03] MEDS ORDERED: PERFLUTREN PROTEIN-A MICROSPHR (Optison) 0.22 MG/ML 3ML VIAL IV ONE (10:55)
[2023-10-03 14:01] LABS: ISTAT HGB ART 13.9 g/dl (14.0-17.9); ISTAT Hct ART 41 %PCV (42-52); ISTAT O2 SATURATION ARTERIAL 88 % (95-98); ISTAT SOURCE ART
[2023-10-03] MEDS: DOBUTamine-DoBUTrex 500mg/D5W 250 ML IV ONE (14:49)
[2023-10-03 19:09] LABS: ALBUMIN 3.4 G/DL (3.4-5.0); ANION GAP 6 (8-16); BLOOD UREA NITROGEN 19 MG/DL (7-18); BUN/CREATININE RATIO 14.3 (10.0-20.0); CALCIUM 8.7 MG/DL (8.5-10.1); CHLORIDE 105 MMOL/L (99-107); CREATININE 1.33 MG/DL (0.60-1.10); GLUCOSE 181 MG/DL (70-104); SODIUM 139 MMOL/L (135-145); TOTAL CARBON DIOXIDE 28.4 MMOL/L (24-32); eCRCL 41 ML/MIN; eGFR 52 ML/MIN
[2023-10-04 06:14] LABS: ISTAT HGB MIX 13.9 g/dl (14.0-17.9); ISTAT Hct MIX 41 %PCV (42-52); ISTAT O2 SATURATION MIX VENOUS 66 % (60-80); ISTAT SOURCE VEN
[2023-10-04] MEDS ORDERED: clopidogrel 75mg tablet PO SCH (08:00)
[2023-10-04] MEDS ORDERED: aspirin 81mg, enteric-coated 1 TAB TABLET.DR PO SCH (08:00)
== END 2023-10-03 19:40 | disposition home or self-care (01) ==
LOC: SSTAY O 06:01
PROVIDERS: ATTEND Internal Medicine Cardiovascular Disease
DX: I35.0 Nonrheumatic aortic (valve) stenosis (principal); I25.10 Atherosclerotic heart disease of native coronary artery without angina pectoris; I49.3 Ventricular premature depolarization; I25.2 Old myocardial infarction; I10 Essential (primary) hypertension; E03.9 Hypothyroidism, unspecified; E78.5 Hyperlipidemia, unspecified; I48.0 Paroxysmal atrial fibrillation; M19.90 Unspecified osteoarthritis, unspecified site; Z79.890 Hormone replacement therapy; Z79.899 Other long term (current) drug therapy; Z95.818 Presence of other cardiac implants and grafts; Z98.890 Other specified postprocedural states; Z82.49 Family history of ischemic heart disease and other diseases of the circulatory system; Z80.9 Family history of malignant neoplasm, unspecified
CPT/HCPCS: 36415; 76937; 80048; 82803; 85014; 85025; 85347; 85610; 85730; 92921; 93005; 93351; 93460; 93571; 99152; 99153; A4615; A6258; A6402; C1725; C1751; C1769; C1874; C1894; C9600; J1250; J1644; J2001; J2250; J3010; J3490; J7030; J7070; Q0163; Q9967; Z7610; 85008; 92920; A6449

== ENCOUNTER 2023-10-19 10:39 | Outpatient (CLI) | payer MEDICARE ==
[~2023-10-19 10:39] MED LIST changes: +ASPI-611 PO; -CALC1TAB PO; +IODIXANOL 320 MG/ML INFUS..BTL 100ML IV ONE; +METO-395 PO; -MULT-1085 PO
[2023-10-19 11:30] LABS: HEMATOCRIT 44.6 % (42.0-52.0); HEMOGLOBIN 14.9 g/dl (14.0-17.9); MEAN CORPUSCULAR HGB CONC 33.3 g/dL (33.0-36.5); PLATELET COUNT 77 X10'3 (140-440)
[2023-10-19 11:31] LABS: APTT 26 SECONDS (22-32); INR 1.1 INR; PROTHROMBIN TIME 11.4 SECONDS (9.0-12.0)
[2023-10-19 11:32] LABS: BASOPHILS % (AUTO) 0.9 % (0-1); EOSINOPHILS % (AUTO) 0.9 % (0-6); MEAN CORPUSCULAR HEMOGLOBIN 29.3 PG (27.0-31.0); MEAN PLATELET VOLUME 11.1 FL (7.4-10.4); MONOCYTES % (AUTO) 22.5 % (2-12); NEUTROPHILS # (AUTO) 2.3 X10'3 (1.8-7.7); NEUTROPHILS % (AUTO) 52.7 % (42-75); RED BLOOD COUNT 5.07 X10'6 (4.70-6.10); RED CELL DISTRIBUTION WIDTH 17.2 % (11.5-14.5); WHITE BLOOD COUNT 4.3 X10'3 (4.5-11.0)
[2023-10-19 11:41] LABS: ALANINE AMINOTRANSFERASE 28 U/L (12-78); ALBUMIN 4.2 G/DL (3.4-5.0); ALBUMIN/GLOBULIN RATIO 1.3 (1.1-1.5); ALKALINE PHOSPHATASE 61 IU/L (46-116); ANION GAP 5 (8-16); ASPARTATE AMINO TRANSFERASE 19 U/L (10-37); BILIRUBIN,TOTAL 0.6 MG/DL (0.1-1.0); BLOOD UREA NITROGEN 25 MG/DL (7-18); BUN/CREATININE RATIO 19.5 (10.0-20.0); CALCIUM 9.4 MG/DL (8.5-10.1); CHLORIDE 104 MMOL/L (99-107); CREATININE 1.28 MG/DL (0.60-1.10); GLUCOSE 146 MG/DL (70-104); POTASSIUM 4.6 MMOL/L (3.5-5.1); PRO BRAIN NATRIURETIC PEPTIDE 2349 PG/ML (0-450); SODIUM 136 MMOL/L (135-145); TOTAL CARBON DIOXIDE 26.9 MMOL/L (24-32); TOTAL PROTEIN 7.4 G/DL (6.4-8.2); eGFR 54 ML/MIN
[2023-10-19 11:50] LABS: PLATELET ESTIMATE DECREASED
[2023-10-19 11:53] LABS: ANISOCYTOSIS 1+
[2023-10-19 11:58] LABS: GIANT PLATELET FEW; TOTAL CELLS COUNTED 100
[2023-10-19 11:59] LABS: LARGE PLATELETS MODERATE
== END 2023-10-19 23:59 | disposition home or self-care (01) ==
LOC: VAS 10:39
PROVIDERS: ATTEND Internal Medicine Cardiovascular Disease
DX: I35.0 Nonrheumatic aortic (valve) stenosis (principal); R06.02 Shortness of breath; I65.23 Occlusion and stenosis of bilateral carotid arteries; I65.29 Occlusion and stenosis of unspecified carotid artery; K80.80 Other cholelithiasis without obstruction; M47.815 Spondylosis without myelopathy or radiculopathy, thoracolumbar region
CPT/HCPCS: 36415; 71046; 71275; 74174; 75572; 80053; 83880; 85007; 85008; 85025; 85610; 85730; 93880; Q9967

== ENCOUNTER 2024-02-18 11:17 | Inpatient (IN) | payer MEDICARE ==
[~2024-02-18] VITALS: Ht 175.3 cm; Wt 70.0 kg
[~2024-02-18 11:17] MED LIST changes: +AMI200T PO; -AMLO5TAB16 PO; +APIX5TAB3 PO; +ASPI-1397 PO; -ASPI-611 PO; -ATOR20TA66 PO; +ATOR40TA72 PO; +CLOP75TA34 PO; -IODIXANOL 320 MG/ML INFUS..BTL 100ML IV ONE; -LEVO137T2 PO; +LOP25T PO; +Lorazepam PO; -METO-395 PO; +SODI650T29 PO
[2024-02-18 12:02] LABS: MONOCYTES # (AUTO) 0.9 X10'3 (0-0.9)
[2024-02-18 12:03] LABS: BASOPHILS % (AUTO) 0.3 % (0-1); EOSINOPHILS % (AUTO) 0.3 % (0-6); HEMATOCRIT 41.9 % (42.0-52.0); HEMOGLOBIN 13.9 g/dl (14.0-17.9); LYMPHOCYTES % (AUTO) 17.3 % (21-51); MEAN CORPUSCULAR HEMOGLOBIN 28.9 PG (27.0-31.0); MEAN CORPUSCULAR HGB CONC 33.1 g/dL (33.0-36.5); MEAN CORPUSCULAR VOLUME 87.4 FL (78-98); MEAN PLATELET VOLUME 11.4 FL (7.4-10.4); NEUTROPHILS # (AUTO) 3.8 X10'3 (1.8-7.7); NEUTROPHILS % (AUTO) 67.1 % (42-75); PLATELET COUNT 68 X10'3 (140-440); RED CELL DISTRIBUTION WIDTH 16.1 % (11.5-14.5); WHITE BLOOD COUNT 5.7 X10'3 (4.5-11.0)
[2024-02-18 12:18] LABS: ALANINE AMINOTRANSFERASE 20 U/L (12-78); ALBUMIN/GLOBULIN RATIO 1.3 (1.1-1.5); ALKALINE PHOSPHATASE 81 IU/L (46-116); ANION GAP 10 (8-16); ASPARTATE AMINO TRANSFERASE 12 U/L (10-37); BLOOD UREA NITROGEN 17 MG/DL (7-18); BUN/CREATININE RATIO 12.1 (10.0-20.0); CALCIUM 9.1 MG/DL (8.5-10.1); CHLORIDE 96 MMOL/L (99-107); GLUCOSE 169 MG/DL (70-104); POTASSIUM 4.3 MMOL/L (3.5-5.1); SODIUM 131 MMOL/L (135-145); TOTAL CARBON DIOXIDE 24.9 MMOL/L (24-32); TOTAL PROTEIN 7.1 G/DL (6.4-8.2); eCRCL 41 ML/MIN; eGFR 49 ML/MIN
[2024-02-18 12:26] LABS: PRO BRAIN NATRIURETIC PEPTIDE 10136 PG/ML (0-450)
[2024-02-18] MEDS: potassium chloride 10mEq ER tablet PO STA (13:38)
[2024-02-18] MEDS: furosemide 10 MG/1 ML 10ml inj IV ONE (13:39)
[2024-02-18] MEDS ORDERED: magnesium sulf-water 4G/100mL 100 ML IV PRN (14:10)
[2024-02-18] MEDS ORDERED: potassium Cl 20 mEq SR tablet PO PRN (14:10)
[2024-02-18] MEDS ORDERED: magnesium sulf-water 2g/50mL 50 ML IV PRN (14:10)
[2024-02-18] MEDS ORDERED: magnesium Cl slow-release 64mg tablet PO PRN (14:10)
[2024-02-18] MEDS ORDERED: potassium Cl 40MEQ/1/2NS 520ml 520 ML IV PRN (14:10)
[2024-02-18] MEDS: furosemide 10 MG/1 ML 10ml inj IV SCH (14:10)
[2024-02-18 14:14] LABS: ANISOCYTOSIS 1+; PLATELET ESTIMATE DECREASED; TOTAL CELLS COUNTED 100
[2024-02-18 14:15] LABS: GIANT PLATELET FEW; LARGE PLATELETS MODERATE
[2024-02-18 14:16] LABS: BURR CELLS FEW; ELLIPTOCYTES FEW; SCHISTOCYTES FEW
[2024-02-18] MEDS ORDERED: mag hydrox/Alum hydrox/simeth 30ml oral suspension PO PRN (14:25)
[2024-02-18] MEDS ORDERED: bisacodyl 10mg suppository rectal RC PRN (14:25)
[2024-02-18] MEDS ORDERED: acetaminophen 325mg tablet PO PRN (14:25)
[2024-02-18] MEDS ORDERED: magnesium hydroxide 30ml (MOM) UD suspension PO PRN (14:25)
[2024-02-18] MEDS ORDERED: ondansetron/PF 4mg/2ml inj IV PRN (14:25)
[2024-02-18] MEDS ORDERED: HYDROcodone/acetaminophen 10/325mg tab PO PRN (14:25)
[2024-02-18] MEDS ORDERED: HYDROcodone/acetaminophen 5mg/325mg tablet PO PRN (14:25)
[2024-02-18 14:47] LABS: APTT 32 SECONDS (22-32); INR 1.2 INR; PROTHROMBIN TIME 12.8 SECONDS (9.0-12.0)
[2024-02-18 15:10] LABS: BILIRUBIN,URINE NEGATIVE (Neg); CLARITY,URINE CLEAR (Clear); COLOR,URINE STRAW (Yellow); GLUCOSE, URINE NEGATIVE (Neg); KETONES,URINE NEGATIVE (Neg); LEUKOCYTE ESTERASE ,URINE NEGATIVE (Neg); NITRITES, URINE NEGATIVE (Neg); OCCULT BLOOD,URINE NEGATIVE (Neg); PH,URINE 5.5 (4.8-8.0); PROTEIN,URINE NEGATIVE (Neg); UROBILINOGEN,URINE 0.2 E.U/dL (0.2-1.0)
[2024-02-18 15:15] LABS: UA COLLECTION TYPE VOIDED
[2024-02-18] MEDS ORDERED: clopidogrel 75mg tablet PO SCH (16:55)
[2024-02-18] MEDS: amiodarone 200mg tablet PO ONE (17:38)
[2024-02-18] MEDS: clopidogrel 75mg tablet PO SCH (17:39)
[2024-02-18] MEDS: metoprolol tartrate 12.5mg (1/2 tablet) PO SCH (17:39)
[2024-02-18] MEDS: DOBUTamine-DoBUTrex 500mg/D5W 250 ML IV SCH ×2 (17:40→23:49)
[2024-02-18] MEDS: K and/or MAG REPLACEMENT MC SCH (20:00)
[2024-02-18] MEDS ORDERED: docusate sod 100mg capsule PO SCH (20:00)
[2024-02-18] MEDS ORDERED: heparin, porcine 5000 units/ml vial SQ SCH (20:00)
[2024-02-18] MEDS: apixaban 5mg tablet PO SCH (22:12)
[2024-02-18] MEDS ORDERED: AMI200T PO (22:54)
[2024-02-18] MEDS ORDERED: METO25TA6 PO (22:54)
[2024-02-18] MEDS ORDERED: APIX5TAB3 PO (22:54)
[2024-02-18] MEDS ORDERED: LEVO125T8 PO (22:59)
[2024-02-18] MEDS ORDERED: SODI650T29 PO (22:59)
[2024-02-18 23:45] VITALS: BP 106/48; PULSE 69; RESP 17; TEMP 97.8; O2SAT 97
[2024-02-19] VITALS (26 sets, daily range): BP systolic 94–128; BP diastolic 42–84; PULSE 63–82; RESP 13–20; TEMP 97.4–98.4; O2SAT 95–98
[2024-02-19 08:15] LABS: BASOPHILS % (AUTO) 0.5 % (0-1); EOSINOPHILS % (AUTO) 0.4 % (0-6); HEMATOCRIT 38.4 % (42.0-52.0); HEMOGLOBIN 12.8 g/dl (14.0-17.9); LYMPHOCYTES # (AUTO) 0.7 X10'3 (1.1-4.8); MEAN CORPUSCULAR HEMOGLOBIN 28.7 PG (27.0-31.0); MEAN CORPUSCULAR HGB CONC 33.3 g/dL (33.0-36.5); MEAN CORPUSCULAR VOLUME 86.2 FL (78-98); MEAN PLATELET VOLUME 11.3 FL (7.4-10.4); MONOCYTES # (AUTO) 0.7 X10'3 (0-0.9); MONOCYTES % (AUTO) 15.7 % (2-12); NEUTROPHILS # (AUTO) 2.8 X10'3 (1.8-7.7); NEUTROPHILS % (AUTO) 66.4 % (42-75); PLATELET COUNT 55 X10'3 (140-440); RED BLOOD COUNT 4.46 X10'6 (4.70-6.10); RED CELL DISTRIBUTION WIDTH 15.7 % (11.5-14.5); WHITE BLOOD COUNT 4.2 X10'3 (4.5-11.0)
[2024-02-19 08:35] LABS: ALANINE AMINOTRANSFERASE 17 U/L (12-78); ALBUMIN 3.6 G/DL (3.4-5.0); ALBUMIN/GLOBULIN RATIO 1.3 (1.1-1.5); ALKALINE PHOSPHATASE 76 IU/L (46-116); ANION GAP 11 (8-16); ASPARTATE AMINO TRANSFERASE 14 U/L (10-37); BILIRUBIN,TOTAL 1.2 MG/DL (0.1-1.0); BLOOD UREA NITROGEN 15 MG/DL (7-18); BUN/CREATININE RATIO 11.1 (10.0-20.0); CALCIUM 8.7 MG/DL (8.5-10.1); CHLORIDE 94 MMOL/L (99-107); CREATININE 1.35 MG/DL (0.60-1.10); GLUCOSE 111 MG/DL (70-104); MAGNESIUM 1.7 MG/DL (1.5-2.4); POTASSIUM 3.7 MMOL/L (3.5-5.1); SODIUM 132 MMOL/L (135-145); TOTAL CARBON DIOXIDE 27.1 MMOL/L (24-32); TOTAL PROTEIN 6.3 G/DL (6.4-8.2); eCRCL 42 ML/MIN; eGFR 51 ML/MIN
[2024-02-19 08:52] LABS: GIANT PLATELET FEW; LARGE PLATELETS FEW; PLATELET ESTIMATE DECREASED
[2024-02-19 09:45] LABS: BILIRUBIN,DIRECT 0.3 MG/DL (0-0.3)
[2024-02-19] MEDS: DOBUTamine-DoBUTrex 500mg/D5W 250 ML IV SCH (09:50)
[2024-02-19 10:46] LABS: TOTAL CELLS COUNTED 100
[2024-02-19 18:18] LABS: BILIRUBIN,DIRECT 0.3 MG/DL (0-0.3); BILIRUBIN,TOTAL 1.1 MG/DL (0.1-1.0)
[2024-02-19 19:39] LABS: HEMOGLOBIN 12.2 g/dl (14.0-17.9)
[2024-02-19 19:41] LABS: MEAN CORPUSCULAR HEMOGLOBIN 28.5 PG (27.0-31.0); MEAN CORPUSCULAR HGB CONC 33.8 g/dL (33.0-36.5); MEAN CORPUSCULAR VOLUME 84.5 FL (78-98); PLATELET COUNT 54 X10'3 (140-440); RED BLOOD COUNT 4.26 X10'6 (4.70-6.10); RED CELL DISTRIBUTION WIDTH 15.2 % (11.5-14.5); WHITE BLOOD COUNT 4.7 X10'3 (4.5-11.0)
[2024-02-19] MEDS ORDERED: apixaban 5mg tablet PO SCH (20:00)
[2024-02-19] MEDS: furosemide 40mg/4ml inj IV SCH (21:13)
[2024-02-19] MEDS: amiodarone 200mg tablet PO SCH (21:13)
[2024-02-19] MEDS: apixaban 2.5mg tablet PO SCH (21:13)
[2024-02-19] MEDS: metoprolol tartrate 12.5mg (1/2 tablet) PO SCH (21:15)
[2024-02-20] VITALS (12 sets, daily range): BP systolic 84–121; BP diastolic 38–69; PULSE 63–83; RESP 13–19; TEMP 96.9–98; O2SAT 94–98
[2024-02-20 07:43] LABS: BASOPHILS % (AUTO) 0.3 % (0-1); EOSINOPHILS % (AUTO) 0.3 % (0-6); LYMPHOCYTES # (AUTO) 0.6 X10'3 (1.1-4.8); MONOCYTES # (AUTO) 0.7 X10'3 (0-0.9); NEUTROPHILS # (AUTO) 2.9 X10'3 (1.8-7.7); WHITE BLOOD COUNT 4.2 X10'3 (4.5-11.0)
[2024-02-20 07:46] LABS: HEMATOCRIT 38.6 % (42.0-52.0); HEMOGLOBIN 13.1 g/dl (14.0-17.9); LYMPHOCYTES % (AUTO) 14.3 % (21-51); MEAN CORPUSCULAR HEMOGLOBIN 28.9 PG (27.0-31.0); MEAN CORPUSCULAR VOLUME 84.9 FL (78-98); MEAN PLATELET VOLUME 11.8 FL (7.4-10.4); MONOCYTES % (AUTO) 16.3 % (2-12); NEUTROPHILS % (AUTO) 68.8 % (42-75); PLATELET COUNT 56 X10'3 (140-440); RED BLOOD COUNT 4.55 X10'6 (4.70-6.10); RED CELL DISTRIBUTION WIDTH 15.5 % (11.5-14.5)
[2024-02-20] MEDS: aspirin 81mg, enteric-coated 1 TAB TABLET.DR PO SCH (07:51)
[2024-02-20] MEDS: atorvastatin 20mg tablet PO SCH (07:52)
[2024-02-20] MEDS: levoTHYROXINE 125mcg tablet PO SCH (07:52)
[2024-02-20 08:05] LABS: INR 1.2 INR; PROTHROMBIN TIME 12.6 SECONDS (9.0-12.0)
[2024-02-20 08:44] LABS: ALANINE AMINOTRANSFERASE 19 U/L (12-78); ALBUMIN 3.6 G/DL (3.4-5.0); ALBUMIN/GLOBULIN RATIO 1.3 (1.1-1.5); ALKALINE PHOSPHATASE 74 IU/L (46-116); ANION GAP 12 (8-16); ASPARTATE AMINO TRANSFERASE 12 U/L (10-37); BILIRUBIN,TOTAL 1.2 MG/DL (0.1-1.0); BLOOD UREA NITROGEN 14 MG/DL (7-18); BUN/CREATININE RATIO 9.4 (10.0-20.0); CALCIUM 8.7 MG/DL (8.5-10.1); CHLORIDE 90 MMOL/L (99-107); CREATININE 1.49 MG/DL (0.60-1.10); GLUCOSE 129 MG/DL (70-104); MAGNESIUM 1.6 MG/DL (1.5-2.4); POTASSIUM 3.3 MMOL/L (3.5-5.1); SODIUM 131 MMOL/L (135-145); TOTAL CARBON DIOXIDE 29.4 MMOL/L (24-32); TOTAL PROTEIN 6.4 G/DL (6.4-8.2); eCRCL 39 ML/MIN; eGFR 45 ML/MIN
[2024-02-20 08:56] LABS: TOTAL CELLS COUNTED 100
[2024-02-20 08:57] LABS: NUCLEATED RED BLOOD CELLS 0 /100WBC (0-0)
[2024-02-20 08:59] LABS: PLATELET ESTIMATE DECREASED
[2024-02-20 09:00] LABS: GIANT PLATELET MODERATE; LARGE PLATELETS MODERATE
[2024-02-20] MEDS: potassium Cl 20 mEq SR tablet PO PRN (10:29)
[2024-02-20] MEDS: DOBUTamine-DoBUTrex 500mg/D5W 250 ML IV SCH (14:40)
[2024-02-20] MEDS ORDERED: salt irrigation nasal spray 45 ML SPRAY NS PRN (16:45)
[2024-02-21 02:00] VITALS: BP 105/59; PULSE 74; RESP 14; TEMP 98; O2SAT 95
[2024-02-21 07:00] VITALS: BP 130/53; PULSE 82; RESP 12; TEMP 96.9; O2SAT 98
[2024-02-21 07:06] LABS: BASOPHILS % (AUTO) 0.2 % (0-1); LYMPHOCYTES # (AUTO) 0.6 X10'3 (1.1-4.8); MONOCYTES # (AUTO) 1.1 X10'3 (0-0.9); WHITE BLOOD COUNT 6.8 X10'3 (4.5-11.0)
[2024-02-21 07:08] LABS: EOSINOPHILS % (AUTO) 0.2 % (0-6); HEMATOCRIT 39.7 % (42.0-52.0); HEMOGLOBIN 13.4 g/dl (14.0-17.9); LYMPHOCYTES % (AUTO) 9.3 % (21-51); MEAN CORPUSCULAR HEMOGLOBIN 28.5 PG (27.0-31.0); MEAN CORPUSCULAR HGB CONC 33.8 g/dL (33.0-36.5); MEAN CORPUSCULAR VOLUME 84.4 FL (78-98); MONOCYTES % (AUTO) 16.4 % (2-12); NEUTROPHILS % (AUTO) 73.9 % (42-75); RED BLOOD COUNT 4.71 X10'6 (4.70-6.10); RED CELL DISTRIBUTION WIDTH 15.3 % (11.5-14.5)
[2024-02-21 07:14] LABS: PLATELET COUNT 58 X10'3 (140-440)
[2024-02-21 07:38] LABS: ALANINE AMINOTRANSFERASE 17 U/L (12-78); ALBUMIN 3.8 G/DL (3.4-5.0); ALBUMIN/GLOBULIN RATIO 1.3 (1.1-1.5); ALKALINE PHOSPHATASE 81 IU/L (46-116); ANION GAP 9 (8-16); ASPARTATE AMINO TRANSFERASE 13 U/L (10-37); BILIRUBIN,TOTAL 1.4 MG/DL (0.1-1.0); BLOOD UREA NITROGEN 14 MG/DL (7-18); BUN/CREATININE RATIO 9.7 (10.0-20.0); CHLORIDE 88 MMOL/L (99-107); CREATININE 1.44 MG/DL (0.60-1.10); GLUCOSE 113 MG/DL (70-104); MAGNESIUM 1.5 MG/DL (1.5-2.4); POTASSIUM 3.4 MMOL/L (3.5-5.1); PRO BRAIN NATRIURETIC PEPTIDE 4262 PG/ML (0-450); SODIUM 126 MMOL/L (135-145); TOTAL CARBON DIOXIDE 29.2 MMOL/L (24-32); TOTAL PROTEIN 6.7 G/DL (6.4-8.2); eCRCL 40 ML/MIN; eGFR 47 ML/MIN
[2024-02-21 08:00] VITALS: RESP 12; O2SAT 98
[2024-02-21 08:17] LABS: ELLIPTOCYTES FEW; GIANT PLATELET FEW; LARGE PLATELETS FEW; PLATELET ESTIMATE DECREASED
[2024-02-21 08:34] LABS: CALCIUM 8.8 MG/DL (8.5-10.1)
[2024-02-21 11:00] VITALS: BP 143/79; PULSE 88; RESP 14; TEMP 97.8; O2SAT 95
[2024-02-21 13:05] VITALS: BP 104/71; PULSE 75; RESP 16; TEMP 97.6; O2SAT 96
[2024-02-21 15:00] VITALS: BP 110/65; PULSE 78; RESP 18; TEMP 99; O2SAT 98
[2024-02-21] MEDS: furosemide 40mg/4ml inj IV SCH (16:20)
[2024-02-21] MEDS ORDERED: SODI1TAB2 PO (18:01)
[2024-02-21] MEDS ORDERED: FURO-150 PO (18:08)
== END 2024-02-21 19:30 | disposition home or self-care (01) | DRG 640 ==
LOC: ER 11:17 → ED HOLD 14:11 → PCU 3S 23:46
PROVIDERS: ADMIT Internal Medicine; ATTEND Internal Medicine
DX: E87.1 Hypo-osmolality and hyponatremia (principal); J96.01 Acute respiratory failure with hypoxia; I13.0 Hypertensive heart and chronic kidney disease with heart failure and stage 1 through stage 4 chronic kidney disease, or unspecified chronic kidney disease; I48.20 Chronic atrial fibrillation, unspecified; I50.22 Chronic systolic (congestive) heart failure; I35.0 Nonrheumatic aortic (valve) stenosis; R04.0 Epistaxis; N18.30 Chronic kidney disease, stage 3 unspecified; E87.5 Hyperkalemia; I25.10 Atherosclerotic heart disease of native coronary artery without angina pectoris; E78.5 Hyperlipidemia, unspecified; Z95.5 Presence of coronary angioplasty implant and graft; Z79.82 Long term (current) use of aspirin; Z79.01 Long term (current) use of anticoagulants; Z79.899 Other long term (current) drug therapy
CPT/HCPCS: 36415; 71045; 80053; 81003; 82247; 82248; 82570; 83010; 83615; 83735; 83880; 83930; 83935; 84295; 84300; 84484; 85007; 85008; 85025; 85027; 85610; 85730; 87081; 93005; 93306; 97161; 97530; 99291; A6449; G0378; J1250; J1940

== ENCOUNTER 2024-02-23 11:39 | Emergency (ER) | payer MEDICARE ==
[~2024-02-23] VITALS: Ht 170.2 cm; Wt 64.1 kg
[~2024-02-23 11:39] MED LIST changes: +FURO-150 PO; +LEVO125T8 PO; -LOP25T PO; -Lorazepam PO; +METO25TA6 PO
[2024-02-23] MEDS: oxymetazoline 15 ML nasal spray NS ONE (12:25)
[2024-02-23 14:33] VITALS: BP 132/68; PULSE 70; RESP 16; TEMP 98.1; O2SAT 99
== END 2024-02-23 14:34 | disposition home or self-care (01) ==
LOC: ER 11:40
DX: Z48.00 Encounter for change or removal of nonsurgical wound dressing (principal); R04.0 Epistaxis; I10 Essential (primary) hypertension; Z79.899 Other long term (current) drug therapy; Z79.82 Long term (current) use of aspirin
CPT/HCPCS: 99282; A6402; A6449

== ENCOUNTER 2024-04-04 05:26 | Inpatient (IN) | payer MEDICARE ==
[2024-04-02 11:00] LABS: BILIRUBIN,URINE NEGATIVE (Neg); CLARITY,URINE CLEAR (Clear); COLOR,URINE YELLOW (Yellow); GLUCOSE, URINE 100 mg/dl (Neg); KETONES,URINE NEGATIVE (Neg); LEUKOCYTE ESTERASE ,URINE NEGATIVE (Neg); NITRITES, URINE NEGATIVE (Neg); OCCULT BLOOD,URINE NEGATIVE (Neg); PH,URINE 5.5 (4.8-8.0); PROTEIN,URINE NEGATIVE (Neg); UROBILINOGEN,URINE 0.2 E.U/dL (0.2-1.0)
[2024-04-02 11:07] LABS: LYMPHOCYTES # (AUTO) 0.8 X10'3 (1.1-4.8); MEAN CORPUSCULAR HGB CONC 32.9 g/dL (33.0-36.5); MEAN CORPUSCULAR VOLUME 84.9 FL (78-98); MONOCYTES # (AUTO) 0.6 X10'3 (0-0.9); NEUTROPHILS # (AUTO) 4.3 X10'3 (1.8-7.7)
[2024-04-02 11:09] LABS: BASOPHILS % (AUTO) 0.5 % (0-1); EOSINOPHILS % (AUTO) 0.2 % (0-6); LYMPHOCYTES % (AUTO) 14.3 % (21-51); MEAN PLATELET VOLUME 11.1 FL (7.4-10.4); MONOCYTES % (AUTO) 10.6 % (2-12); NEUTROPHILS % (AUTO) 74.4 % (42-75); PRE OP HEMATOCRIT 41.9 % (42.0-52.0); PRE OP HEMOGLOBIN 13.8 g/dL (14.0-17.9); PRE OP WHITE BLOOD COUNT 5.7 10'3 (4.8-10.8); RED BLOOD COUNT 4.93 X10'6 (4.70-6.10); RED CELL DISTRIBUTION WIDTH 17.7 % (11.5-14.5)
[2024-04-02 11:12] LABS: UA COLLECTION TYPE CLN CATCH MIDSTREAM
[2024-04-02 11:30] LABS: ALBUMIN 4.4 G/DL (3.4-5.0); ALBUMIN/GLOBULIN RATIO 1.2 (1.1-1.5); ALKALINE PHOSPHATASE 92 IU/L (46-116); BLOOD UREA NITROGEN 20 MG/DL (7-18); BUN/CREATININE RATIO 12.3 (10.0-20.0); CALCIUM 9.4 MG/DL (8.5-10.1); CHLORIDE 102 MMOL/L (99-107); CREATININE 1.63 MG/DL (0.60-1.10); PRE OP ALT 22 U/L (30-65); PRE OP ANION GAP 9 (8-16); PRE OP AST 13 U/L (10-37); PRE OP BILIRUB, TOTAL 0.7 MG/DL (0.0-1.0); PRE OP SODIUM 142 MMOL/L (135-145); PRO BRAIN NATRIURETIC PEPTIDE 2166 PG/ML (0-450); TOTAL PROTEIN 8.1 G/DL (6.4-8.2); eGFR 41 ML/MIN
[2024-04-02 11:31] LABS: PRE OP GLUCOSE 280 MG/DL (70-104)
[2024-04-02 11:37] LABS: PRE OP PLATELET COUNT 84 X10'3 (140-440)
[2024-04-02 11:38] LABS: GIANT PLATELET FEW; PLATELET ESTIMATE DECREASED
[2024-04-02 11:39] LABS: ANISOCYTOSIS 1+; LARGE PLATELETS FEW
[2024-04-02 11:45] LABS: PRE OP INR 1.1 INR; PRE OP PROTIME 11.6 SECONDS (9.0-12.0)
[2024-04-02 12:01] LABS: THYROID STIMULATING HORMONE 0.35 ulU/ml (0.34-4.50)
[2024-04-03 08:30] LABS: HEMOGLOBIN A1C 6.3 % (4.5-6.2)
[~2024-04-04] VITALS: Ht 177.8 cm; Wt 65.8 kg
[~2024-04-04 05:26] MED LIST changes: -FURO-150 PO; +FURO20TA4 PO
[2024-04-04] MEDS ORDERED: phenylephrine inj 50 MG in normal saline 250ml IV solN IV SCH (05:30)
[2024-04-04] MEDS ORDERED: nitroPRUSSIDE (NIPRIDE) (200MCG/ML) 100ML Drip IV SCH (05:30)
[2024-04-04] MEDS ORDERED: DOCUMENT DATE & TIME OF BETA-BLOCKER PO ONE (05:30)
[2024-04-04] MEDS ORDERED: ceFAZolin 2gm in dextrose, iso 50 ML IV ONE (05:30)
[2024-04-04] MEDS ORDERED: ondansetron/PF 4mg/2ml inj IV PRN (05:30)
[2024-04-04] MEDS: ringers solution, lacted 1,000 ML IV SCH (06:03)
[2024-04-04] MEDS: VANCOMYCIN 1GM 200ML H20 (PEG) 200 ML IV ONE (06:03)
[2024-04-04] MEDS: famotidine 20mg tablet PO ONE (06:04)
[2024-04-04] MEDS: aspirin 325mg tablet PO ONE (06:04)
[2024-04-04] MEDS ORDERED: protamine sulfate 10mg/ml inj. ONE (06:24)
[2024-04-04] MEDS ORDERED: heparin 1,000 UNITS/NS 500ml 0 ML ONE (06:47)
[2024-04-04] MEDS ORDERED: LIDOcaine 1% 30ml preserv. free vial ONE (06:47)
[2024-04-04] MEDS ORDERED: iohexol 350MG/ML 100ml bottle IV ONE ×2 (06:47→06:55)
== END 2024-04-04 18:36 | disposition home or self-care (01) | DRG 307 ==
LOC: PAS IN 05:26
PROVIDERS: ADMIT Internal Medicine Cardiovascular Disease; ATTEND Internal Medicine Cardiovascular Disease
DX: I35.0 Nonrheumatic aortic (valve) stenosis (principal); Z53.8 Procedure and treatment not carried out for other reasons
CPT/HCPCS: 36415; 71046; 80053; 81003; 82948; 83036; 83880; 84443; 85008; 85025; 85610; 85730; 86870; 86880; 86885; 86900; 86901; 86902; 86905; 86920; 86922; 87081; 93005; C1789; J0690; J1644; J2003; J2371; J2720; J3372; J3490; J7050; J7120; Q9967

== ENCOUNTER 2024-05-02 10:01 | Inpatient (IN) | payer MEDICARE ==
[2024-04-29 14:54] LABS: BILIRUBIN,URINE NEGATIVE (Neg); CLARITY,URINE CLEAR (Clear); COLOR,URINE YELLOW (Yellow); GLUCOSE, URINE NEGATIVE (Neg); KETONES,URINE NEGATIVE (Neg); LEUKOCYTE ESTERASE ,URINE NEGATIVE (Neg); NITRITES, URINE NEGATIVE (Neg); OCCULT BLOOD,URINE NEGATIVE (Neg); PH,URINE 5.5 (4.8-8.0); PROTEIN,URINE NEGATIVE (Neg); UROBILINOGEN,URINE 0.2 E.U/dL (0.2-1.0)
[2024-04-29 14:56] LABS: MONOCYTES # (AUTO) 1.2 X10'3 (0-0.9); NEUTROPHILS # (AUTO) 3.4 X10'3 (1.8-7.7); PRE OP WHITE BLOOD COUNT 5.6 10'3 (4.8-10.8)
[2024-04-29 14:58] LABS: UA COLLECTION TYPE CLN CATCH MIDSTREAM
[2024-04-29 14:58] LABS: LYMPHOCYTES # (AUTO) 0.9 X10'3 (1.1-4.8)
[2024-04-29 15:04] LABS: BASOPHILS % (AUTO) 0.8 % (0-1); EOSINOPHILS % (AUTO) 0.5 % (0-6); LYMPHOCYTES % (AUTO) 16.8 % (21-51); MEAN CORPUSCULAR HEMOGLOBIN 27.4 PG (27.0-31.0); MEAN CORPUSCULAR HGB CONC 32.9 g/dL (33.0-36.5); MEAN CORPUSCULAR VOLUME 83.2 FL (78-98); MEAN PLATELET VOLUME 10.8 FL (7.4-10.4); MONOCYTES % (AUTO) 21.5 % (2-12); NEUTROPHILS % (AUTO) 60.4 % (42-75); PRE OP HEMATOCRIT 39.1 % (42.0-52.0); PRE OP HEMOGLOBIN 12.9 g/dL (14.0-17.9); PRE OP PLATELET COUNT 121 X10'3 (140-440); RED CELL DISTRIBUTION WIDTH 18.7 % (11.5-14.5)
[2024-04-29 15:09] LABS: PRE OP INR 1.1 INR; PRE OP PROTIME 11.2 SECONDS (9.0-12.0)
[2024-04-29 15:24] LABS: ALBUMIN 3.6 G/DL (3.4-5.0); ALKALINE PHOSPHATASE 85 IU/L (46-116); BLOOD UREA NITROGEN 19 MG/DL (7-18); BUN/CREATININE RATIO 11.9 (10.0-20.0); CALCIUM 9.1 MG/DL (8.5-10.1); CHLORIDE 104 MMOL/L (99-107); CREATININE 1.59 MG/DL (0.60-1.10); PRE OP ALT 38 U/L (30-65); PRE OP ANION GAP 6 (8-16); PRE OP AST 28 U/L (10-37); PRE OP BILIRUB, TOTAL 0.5 MG/DL (0.0-1.0); PRE OP GLUCOSE 190 MG/DL (70-104); PRE OP POTASSIUM 4.1 MMOL/L (3.4-5.1); PRE OP SODIUM 139 MMOL/L (135-145); PRO BRAIN NATRIURETIC PEPTIDE 4185 PG/ML (0-450); TOTAL CARBON DIOXIDE 28.6 MMOL/L (24-32); TOTAL PROTEIN 7.3 G/DL (6.4-8.2); eGFR 42 ML/MIN
[2024-04-29 16:58] LABS: TOTAL CELLS COUNTED 100
[2024-04-29 16:59] LABS: ANISOCYTOSIS 2+; PLATELET ESTIMATE DECREASED
[2024-04-29 17:00] LABS: GIANT PLATELET FEW
[2024-04-29 17:01] LABS: ACANTHOCYTES FEW; BURR CELLS FEW; LARGE PLATELETS FEW
[2024-04-29 17:09] LABS: ELLIPTOCYTES 2+
[2024-05-01] MEDS: DOCUMENT DATE & TIME OF BETA-BLOCKER PO ONE (20:00)
[2024-05-02] VITALS (29 sets, daily range): BP systolic 98–132; BP diastolic 43–65; PULSE 56–96; RESP 9–17; TEMP 98.2–98.5; O2SAT 92–100
[~2024-05-02] VITALS: Ht 175.3 cm; Wt 61.3 kg
[2024-05-02] MEDS: ceFAZolin 2gm in dextrose, iso 50 ML IV ONE (05:30)
[2024-05-02] MEDS: nitroPRUSSIDE (NIPRIDE) (200MCG/ML) 100ML Drip IV SCH (05:30)
[~2024-05-02 10:01] MED LIST changes: +AMLO2.5T2 PO; -ASPI-1397 PO; +CALCIUM PO; +CEFD300C3 PO; +CHOL100046 PO; +LACT1CAP26 PO; +POTA-207 PO; -SODI650T29 PO; +ondansetron/PF 4mg/2ml inj IV PRN; +protamine sulfate 10mg/ml inj. ONE
[2024-05-02] MEDS ORDERED: DOBUTamine-DoBUTrex 500mg/D5W 250 ML IV PRN (10:50)
[2024-05-02] MEDS: aspirin 325mg tablet PO ONE (11:13)
[2024-05-02] MEDS: famotidine 20mg tablet PO ONE (11:14)
[2024-05-02] MEDS: ringers solution, lacted 1,000 ML IV SCH (11:30)
[2024-05-02] MEDS: vancomycin/NS 1 GM ADD-VANTAGE 250 ML X 1 DOSE IV ONE (11:31)
[2024-05-02] MEDS ORDERED: heparin 1,000 UNITS/NS 500ml 0 ML ONE (14:28)
[2024-05-02] MEDS ORDERED: iohexol 350MG/ML 100ml bottle IV ONE ×2 (14:28→14:51)
[2024-05-02] MEDS ORDERED: iohexol 350 MG/ML 50ML vial IV ONE (14:51)
[2024-05-02] MEDS ORDERED: sevoflurane 250ml liquid IH ONE (14:55)
[2024-05-02] MEDS ORDERED: fentaNYL/PF 50MCG/1 ML 2ML syringe ONE (15:04)
[2024-05-02] MEDS ORDERED: midazolam 1 mg/ML 2ml injection ONE (15:04)
[2024-05-02] MEDS ORDERED: ondansetron/PF 4mg/2ml inj ONE (15:22)
[2024-05-02] MEDS ORDERED: heparin 1,000unit/ml 10ml vial 10 ML ONE (15:22)
[2024-05-02] MEDS ORDERED: etomidate 2mg/ml inj. ONE (15:22)
[2024-05-02] MEDS ORDERED: dexamethasone sod phosphate 4mg/ml inj. ONE (15:22)
[2024-05-02] MEDS ORDERED: morphine 4 MG/ML inj SYRINge ONE (15:46)
[2024-05-02] MEDS ORDERED: magnesium sulf-water 2g/50mL 50 ML IV PRN (16:15)
[2024-05-02] MEDS ORDERED: acetaminophen 325mg tablet PO PRN (16:15)
[2024-05-02] MEDS ORDERED: hydrALAZINE 20mg/ml inj. IV PRN (16:15)
[2024-05-02] MEDS ORDERED: docusate sod 100mg capsule PO PRN (16:15)
[2024-05-02] MEDS ORDERED: labetalol 20mg/4ml (5mg/ml) syringe IV PRN (16:15)
[2024-05-02] MEDS ORDERED: ALPRAZolam 0.25mg tablet PO PRN (16:15)
[2024-05-02] MEDS ORDERED: diphenhydrAMINE 25mg capsule PO PRN (16:15)
[2024-05-02] MEDS ORDERED: ondansetron/PF 4mg/2ml inj IV PRN (16:15)
[2024-05-02] MEDS ORDERED: potassium Cl 20 mEq SR tablet PO PRN (16:15)
[2024-05-02] MEDS ORDERED: potassium Cl 40MEQ/1/2NS 520ml 520 ML IV PRN (16:15)
[2024-05-02] MEDS ORDERED: potassium Cl 40MEQ/270ML bag 250 ML IV PRN (16:15)
[2024-05-02] MEDS ORDERED: pantoprazole 40mg Tablet.DR PO PRN (16:15)
[2024-05-02] MEDS ORDERED: magnesium sulf-water 4G/100mL 100 ML IV PRN (16:15)
[2024-05-02] MEDS ORDERED: potassium CL 10mEq/100ml bag 100 ML IV PRN (16:15)
[2024-05-02] MEDS ORDERED: HYDROcodone/acetaminophen 5mg/325mg tablet PO PRN (16:15)
[2024-05-02] MEDS ORDERED: proCHLORperazine 10 MG/2 ml inj IV PRN (16:15)
[2024-05-02] MEDS ORDERED: potassium Cl 20mEq/100mL bag 100 ML IV PRN (16:15)
[2024-05-02] MEDS ORDERED: VANCOMYCIN 1GM 200ML H20 (PEG) 200 ML IV SCH (20:00)
[2024-05-02] MEDS: vancomycin/NS 1 GM ADD-VANTAGE 250 ML IV SCH (21:50)
[2024-05-02] MEDS: normal saline 1000ml 1,000 ML IV SCH (23:17)
[2024-05-02] MEDS: metoprolol tartrate 12.5mg (1/2 tablet) PO SCH (23:19)
[2024-05-02] MEDS: amiodarone 200mg tablet PO SCH (23:19)
[2024-05-02] MEDS: loperamide 2mg capsule PO SCH (23:19)
[2024-05-02] MEDS: cholecalciferol (vitamin D3) 1,000 unit (25mcg) tablet PO SCH (23:19)
[2024-05-02] MEDS: lactobacillus rhamnosus 10,000 MMU CELLS/CAPSULE PO SCH (23:20)
[2024-05-03] MEDS: sod chloride 0.9% 10ml flush syringe IV SCH
[2024-05-03] MEDS: cefdinir 300mg capsule PO SCH (01:18)
[2024-05-03] MEDS: furosemide 20MG tablet PO SCH (01:19)
[2024-05-03] MEDS: ceFAZolin 1GM/D5W- ADD-VANTAGE 50 ML IV SCH (01:23)
[2024-05-03 02:00] VITALS: BP 111/51; PULSE 57; RESP 15; TEMP 98.2; O2SAT 96
[2024-05-03 06:00] VITALS: BP_SYST 11; BP_SYST 111; BP_DIAS 52; PULSE 57; RESP 12; TEMP 97.3; O2SAT 94
[2024-05-03 06:10] LABS: EOSINOPHILS % (AUTO) 0 % (0-6); MEAN CORPUSCULAR HGB CONC 33.2 g/dL (33.0-36.5); MEAN PLATELET VOLUME 10.9 FL (7.4-10.4); RED BLOOD COUNT 4.09 X10'6 (4.70-6.10); WHITE BLOOD COUNT 6.1 X10'3 (4.5-11.0)
[2024-05-03 06:12] LABS: BASOPHILS % (AUTO) 0.2 % (0-1); HEMATOCRIT 33.7 % (42.0-52.0); HEMOGLOBIN 11.2 g/dl (14.0-17.9); LYMPHOCYTES # (AUTO) 0.4 X10'3 (1.1-4.8); LYMPHOCYTES % (AUTO) 7.3 % (21-51); MEAN CORPUSCULAR HEMOGLOBIN 27.4 PG (27.0-31.0); MEAN CORPUSCULAR VOLUME 82.6 FL (78-98); MONOCYTES # (AUTO) 0.1 X10'3 (0-0.9); NEUTROPHILS # (AUTO) 5.6 X10'3 (1.8-7.7); NEUTROPHILS % (AUTO) 91.5 % (42-75); PLATELET COUNT 98 X10'3 (140-440); RED CELL DISTRIBUTION WIDTH 17.7 % (11.5-14.5)
[2024-05-03 06:29] LABS: ALANINE AMINOTRANSFERASE 20 U/L (12-78); ALKALINE PHOSPHATASE 70 IU/L (46-116); ANION GAP 7 (8-16); ASPARTATE AMINO TRANSFERASE 16 U/L (10-37); BILIRUBIN,TOTAL 0.3 MG/DL (0.1-1.0); BLOOD UREA NITROGEN 27 MG/DL (7-18); BUN/CREATININE RATIO 15.7 (10.0-20.0); CALCIUM 7.8 MG/DL (8.5-10.1); CHLORIDE 101 MMOL/L (99-107); CREATININE 1.72 MG/DL (0.60-1.10); GLUCOSE 207 MG/DL (70-104); MAGNESIUM 1.8 MG/DL (1.5-2.4); POTASSIUM 4.5 MMOL/L (3.5-5.1); PRO BRAIN NATRIURETIC PEPTIDE 1992 PG/ML (0-450); SODIUM 133 MMOL/L (135-145); TOTAL CARBON DIOXIDE 24.8 MMOL/L (24-32); eCRCL 29 ML/MIN; eGFR 38 ML/MIN
[2024-05-03 08:00] VITALS: RESP 12; O2SAT 94
[2024-05-03] MEDS: amLODIPine 5mg tablet PO SCH (08:02)
[2024-05-03] MEDS: levoTHYROXINE 125mcg tablet PO SCH (08:03)
[2024-05-03] MEDS: potassium Cl 20 mEq SR tablet PO SCH (08:03)
[2024-05-03] MEDS: clopidogrel 75mg tablet PO SCH (08:03)
[2024-05-03] MEDS: atorvastatin 20mg tablet PO SCH (08:04)
[2024-05-03 12:45] VITALS: BP 106/54; PULSE 60; RESP 12; TEMP 97.3; O2SAT 98
[2024-08-30] MEDS ORDERED: phenylephrine inj 50 MG in normal saline 250ml IV solN IV SCH (05:30)
== END 2024-05-03 15:00 | disposition home or self-care (01) | DRG 266 ==
LOC: PAS IN 10:01 → PCU 3S 20:55 → S STAY 05-03 11:46
PROVIDERS: ADMIT Internal Medicine Cardiovascular Disease; ATTEND Internal Medicine Cardiovascular Disease
PROC: 5A2204Z Restoration of Cardiac Rhythm, Single (ICD-10-PCS; 2024-05-02)
PROC: B41G1ZZ Fluoroscopy of Left Lower Extremity Arteries using Low Osmolar Contrast (ICD-10-PCS; 2024-05-02)
PROC: B41F1ZZ Fluoroscopy of Right Lower Extremity Arteries using Low Osmolar Contrast (ICD-10-PCS; 2024-05-02)
PROC: B31P1ZZ Fluoroscopy of Thoraco-Abdominal Aorta using Low Osmolar Contrast (ICD-10-PCS; 2024-05-02)
PROC: B44LZZZ Ultrasonography of Femoral Artery (ICD-10-PCS; 2024-05-02)
PROC: 02RF3JZ Replacement of Aortic Valve with Synthetic Substitute, Percutaneous Approach (ICD-10-PCS; principal; 2024-05-02 14:55)
DX: I35.0 Nonrheumatic aortic (valve) stenosis (principal); I50.23 Acute on chronic systolic (congestive) heart failure; I48.91 Unspecified atrial fibrillation; E78.5 Hyperlipidemia, unspecified; I11.0 Hypertensive heart disease with heart failure; I25.10 Atherosclerotic heart disease of native coronary artery without angina pectoris; Z79.01 Long term (current) use of anticoagulants; Z79.02 Long term (current) use of antithrombotics/antiplatelets; Z98.61 Coronary angioplasty status
CPT/HCPCS: 33361; 36415; 71045; 71046; 76937; 80053; 81003; 82948; 83735; 83880; 85007; 85025; 85347; 85610; 85730; 86870; 86885; 86900; 86901; 86902; 86905; 86920; 86922; 93005; 93308; A4618; A6258; A6449; C1756; C1760; C1789; C1894; G0378; J0690; J1100; J1250; J1644; J2250; J2270; J2371; J2405; J2720; J3010; J3370; J3490; J7030; J7040; J7050; J7120; Q9967